=== PATIENT | male | born 1955 | race African-American/Black ===

== ENCOUNTER 2022-03-21 09:42 | Emergency (ER) | payer BC, OTHER ==
[2022-03-21 10:02] VITALS: BP 120/71; PULSE 105; TEMP 98; BMI 28.8
== END 2022-03-21 11:09 | disposition home or self-care (01) ==
LOC: JER 09:42
DX: J06.9 Acute upper respiratory infection, unspecified (principal)
CPT/HCPCS: 71046-TC-FY; 99284-25; C9803-CS; U0003; U0005